=== PATIENT | female | born 1935 | race Caucasian/White ===

== ENCOUNTER 2018-11-29 19:18 | Emergency (ER) | payer MEDICARE ==
[2018-11-29 19:59] LABS: HEMATOCRIT 37.2 % (36.0-47.0); HEMOGLOBIN 12.3 g/dL (12.0-15.5); MEAN CORPUSCULAR HEMOGLOBIN 28.6 pg (27.0-33.4); MEAN CORPUSCULAR HGB CONC 33.1 g/dL (32.0-36.0); MEAN CORPUSCULAR VOLUME 86 fl (80-97); PLATELET COUNT 302 10^3/uL (150-450); RED CELL DISTRIBUTION WIDTH 14.5 % (11.5-14.0); WHITE BLOOD COUNT 11.8 10^3/uL (4.0-10.5)
[2018-11-29 20:16] LABS: ALANINE AMINOTRANSFERASE 101 U/L (9-52); ALBUMIN 3.7 g/dL (3.5-5.0); ALKALINE PHOSPHATASE 167 U/L (38-126); ANION GAP 9 (5-19); ASPARTATE AMINO TRANSFERASE 281 U/L (14-36); BILIRUBIN,DIRECT 0.9 mg/dL (0.0-0.4); BILIRUBIN,TOTAL 1.4 mg/dL (0.2-1.3); BLOOD UREA NITROGEN 14 mg/dL (7-20); CALCIUM 10.2 mg/dL (8.4-10.2); CARBON DIOXIDE 27 mmol/L (22-30); CHLORIDE 103 mmol/L (98-107); GLUCOSE 134 mg/dL (75-110); POTASSIUM 3.8 mmol/L (3.6-5.0); SODIUM 138.6 mmol/L (137-145); TOTAL PROTEIN 6.7 g/dL (6.3-8.2)
[2018-11-29 20:24] LABS: ABSOLUTE LYMPHOCYTES# (MANUAL) 0.2 10^3/uL (0.5-4.7); ABSOLUTE MONOCYTES # (MANUAL) 0.7 10^3/uL (0.1-1.4); ABSOLUTE NEUTROPHILS# (MANUAL) 10.9 10^3/uL (1.7-8.2); BASOPHILS % (MANUAL) 0 % (0-2); EOSINOPHILS % (MANUAL) 0 % (0-6); LYMPHOCYTES % (MANUAL) 2 % (13-45); MONOCYTES % (MANUAL) 6 % (3-13); PLATELET COMMENT ADEQUATE; RBC MORPHOLOGY COMMENT NORMO-CYTIC/CHROMIC; SEGMENTED NEUTROPHILS % (MAN) 92 % (42-78); TOTAL CELLS COUNTED 100
[2018-11-29 21:07] LABS: AMORPHOUS SEDIMENT,URINE TRACE /HPF; APPEARANCE,URINE CLOUDY; BILIRUBIN,URINE NEGATIVE (NEGATIVE); COLOR,URINE YELLOW; GLUCOSE, URINE NEGATIVE (NEGATIVE); KETONES,URINE 20 mg/dL (NEGATIVE); LEUKOCYTE ESTERASE,URINE TRACE (NEGATIVE); NITRITE,URINE NEGATIVE (NEGATIVE); PROTEIN,URINE 30 mg/dL (NEGATIVE); URINE SPECIFIC GRAVITY 1.014; UROBILINOGEN,URINE NEGATIVE mg/dL (<2.0)
[2018-11-29] MEDS ORDERED: RINGERS SOLUTION,LACTATED 800 ML IV ONE (21:51)
--- NOTE | 2018-11-29 21:52 | ER Document Report ---
ED General - General Chief Complaint: Abdominal Pain Stated Complaint: STOMACH PAIN Time Seen by Provider: 11/29/18 19:29 Cannot obtain history due to: Dementia Notes: Patient is an 83-year-old female with a past medical history of advanced dementia, cachexia, history of ostomy placement after perforated diverticulitis who presents with 2 days of nausea. Family reports that the patient normally will at least tolerate boost or ice cream but has not been willing to even eat cheese over the last several days due to persistent vomiting. He also reports that she continues to complain of upper abdominal discomfort. No history of similar symptoms in the past. Nothing seems to improve or worsen the patient's symptoms. The patient has not seen her primary care physician regarding today's concerns. No fever or constitutional symptoms. History is otherwise limited secondary to the patient's advanced dementia. TRAVEL OUTSIDE OF THE [place] IN LAST 30 DAYS: No - Related Data Allergies/Adverse Reactions: Penicillins Allergy (Intermediate, Verified 08/02/14 19:42) Shortness of Breath benazepril [Benazepril] Allergy (Mild, Verified 08/02/14 19:42) Cough Sertraline Allergy (Mild, Uncoded 08/02/14 19:45) Anxiety Past Medical History - General Information source: Relative - Social History Smoking Status: Never Smoker Frequency of alcohol use: None Drug Abuse: None Lives with: Family Family History: Reviewed & Not Pertinent - Past Medical History Cardiac Medical History: Reports: Hx Hypercholesterolemia Denies: Hx Atrial Fibrillation, Hx Congestive Heart Failure, Hx Coronary Artery Disease, Hx Heart Attack, Hx Hypertension, Hx Peripheral Vascular Disease, Hx Pulmonary Embolism, Hx Heart Murmur Pulmonary Medical History: Denies: Hx Asthma, Hx Bronchitis, Hx COPD, Hx Pneumonia, Hx Respiratory Failure, Hx Sleep Apnea, Hx Tuberculosis Neurological Medical History: Denies: Hx Cerebrovascular Accident, Hx Seizures Renal/ Medical History: Denies: Hx End Stage Renal Disease, Hx Kidney Stones, Hx Ovarian Cysts, Hx Peritoneal Dialysis, Hx Pelvic Inflammatory Disease Malignancy Medical History: Denies: Hx Breast Cancer, Hx Cervical Cancer, Hx Lung Cancer, Hx Ovarian Cancer GI Medical History: Denies: Hx Crohn's Disease, Hx Gastroesophageal Reflux Disease, Hx Hepatitis, Hx Hiatal Hernia, Hx Irritable Bowel, Hx Liver Failure, Hx Pancreatitis, Hx Ulcer Musculoskeletal Medical History: Reports Hx Arthritis, Denies Hx Fibromyalgia, Denies Hx Multiple Sclerosis, Denies Hx Muscular Dystrophy Psychiatric Medical History: Denies: Hx Depression Comment Only: Hx Dementia - MEMORY LOSS,PERIODS OF CONFUSION Traumatic Medical History: Denies: Hx Fractures Infectious Medical History: Denies: Hx Hepatitis Past Surgical History: Reports: Hx Hysterectomy, Hx Tonsillectomy. Denies: Hx Appendectomy, Hx Bowel Surgery, Hx Section, Hx Cholecystectomy, Hx Colostomy, Hx Coronary Artery Bypass Graft, Hx Gastric Bypass Surgery, Hx Her niorrhaphy, Hx Mastectomy, Hx Open Heart Surgery, Hx Pacemaker, Hx Tubal Ligation - Immunizations Hx Diphtheria, Pertussis, Tetanus Vaccination: Yes Hx Pneumococcal Vaccination: 06/08/14 Review of Systems - Review of Systems Notes: Constitutional: Negative for fever. HENT: Negative for sore throat. Eyes: Negative for visual changes. Cardiovascular: Negative for chest pain. Respiratory: Negative for shortness of breath. Gastrointestinal: Positive for abdominal pain and vomiting Genitourinary: Negative for dysuria. Musculoskeletal: Negative for back pain. Skin: Negative for rash. Neurological: Negative for headaches, weakness or numbness. 10 point ROS negative except as marked above and in HPI. Physical Exam - Vital signs Vitals: Temp Pulse Resp BP Pulse Ox 97.0 F 62 12 144/55 H 100 11/29/18 19:31 11/29/18 19:31 11/29/18 19:31 11/29/18 19:31 11/29/18 19:31 Interpretation: Normal Notes: PHYSICAL EXAMINATION: GENERAL: Frail, cachectic female in no acute distress HEAD: Atraumatic, normocephalic. EYES: Pupils equal round and reactive to light, extraocular movements intact, sclera anicteric, conjunctiva are normal. ENT: nares patent, oropharynx clear without exudates. Moderately dry mucous membranes. NECK: Normal range of motion, supple without lymphadenopathy LUNGS: Breath sounds clear to auscultation bilaterally and equal. No wheezes rales or rhonchi. HEART: Regular rate and rhythm without murmurs ABDOMEN: Soft, focal tenderness the right upper quadrant and epigastrium but no other localized areas of tenderness, normoactive bowel sounds. No guarding, no rebound. No masses appreciated. EXTREMITIES: Normal range of motion, no pitting or edema. No cyanosis. NEUROLOGICAL: No focal neurological deficits. Moves all extremities spontaneously and on command. PSYCH: Alert, oriented only to person SKIN: Warm, Dry, normal turgor, no rashes or lesions noted. Course - Re-evaluation Re-evalutation: 11/29/18 21:52 Patient presents with a clinical history, labs and exam findings most consistent with acute cholecystitis. Right upper quadrant abdominal pain on exam, nausea and vomiting with any in, deranged LFTs and moderate leukocytosis. Right upper quadrant ultrasound is pending. 11/29/18 23:47 Right upper quadrant ultrasound does show gallstones without any evidence of acute cholecystitis although there is a positive [place]'s sign. Common bile duct is not visualized. However given the presence of gallstones with LFT derangements this is most consistent with choledocholithiasis. I have contacted [facility] and asked that patient be transferred for ERCP. 11/30/18 00:01 Patient has been accepted at [facility] for ERCP. Excepting physician is Dr. Mayorga. - Vital Signs Vital signs: Temp Pulse Resp BP Pulse Ox 97.0 F 62 12 144/55 H 100 11/29/18 23:55 11/29/18 19:31 11/29/18 23:55 11/29/18 19:31 11/29/18 23:55 - Laboratory Result Diagrams: 11/29/18 19:45 11/29/18 19:45 Laboratory results interpreted by me: 11/29/18 11/29/18 11/29/18 19:45 19:45 20:41 WBC 11.8 H RDW 14.5 H Seg Neuts % (Manual) 92 H Lymphocytes % (Manual) 2 L Abs Neuts (Manual) 10.9 H Abs Lymphs (Manual) 0.2 L Glucose 134 H Total Bilirubin 1.4 H Direct Bilirubin 0.9 H AST 281 H ALT 101 H Alkaline Phosphatase 167 H Ammonia Urine Protein 30 H Urine Ketones 20 H Ur Leukocyte Esterase TRACE H Urine Ascorbic Acid 20 H 11/29/18 21:20 WBC RDW Seg Neuts % (Manual) Lymphocytes % (Manual) Abs Neuts (Manual) Abs Lymphs (Manual) Glucose Total Bilirubin Direct Bilirubin AST ALT Alkaline Phosphatase Ammonia < 8.7 L Urine Protein Urine Ketones Ur Leukocyte Esterase Urine Ascorbic Acid - Diagnostic Test Radiology reviewed: Reports reviewed Discharge - Discharge Clinical Impression: Choledocholithiasis, Upper abdominal pain Nausea and vomiting Qualifiers: Vomiting type: unspecified Vomiting Intractability: non-intractable Qualified Code(s): R11.2 - Nausea with vomiting, unspecified Condition: Fair Disposition: [facility] Referrals: KRISTAN ARGUETA MD [Primary Care Provider] - Follow up as needed
[2018-11-29 22:14] LABS: LIPASE 283.8 U/L (23-300)
--- NOTE | 2018-11-29 23:38 | RADIOLOGY REPORT (SQ) ---
US ABDOMEN LIMITED HISTORY: Right upper quadrant pain. COMPARISON: None. TECHNIQUE: Grayscale and color Doppler imaging of the right upper quadrant was performed. FINDINGS: The liver measures 14.4 cm. The liver has normal echotexture without focal lesion identified. The main portal vein has normal hepatopedal flow. Shadowing gallstones are present. No pericholecystic fluid or gallbladder wall thickening. There is reportedly a positive [place]'s sign. The common bile duct is not visualized. The pancreas is poorly visualized due to overlying bowel gas. The right kidney measures 8.8 cm in length, without hydronephrosis. The visualized portions of the IVC and aorta are patent. IMPRESSION: Cholelithiasis without evidence of acute cholecystitis.
[2018-11-29] MEDS ORDERED: CEFTRIAXONE INJ 1000 MG VIAL IV ONE (23:59)
[2018-11-30] MEDS ORDERED: METRONIDAZOLE 500 MG/NS RTU 500 MG/100 ML RTUPB IV ONE (00:10)
[2018-11-30] MEDS ORDERED: RINGERS SOLUTION,LACTATED 1,000 ML IV ONE (02:46)
[2018-11-30] MEDS ORDERED: MORPHINE SULFATE 10 MG/ML INJ IV PRN (03:34)
[2018-11-30 04:50] VITALS: BP 132/67
== END 2018-11-30 04:10 | disposition short-term general hospital (02) ==
LOC: ER 19:18
DX: K80.50 Calculus of bile duct without cholangitis or cholecystitis without obstruction (principal); R10.10 Upper abdominal pain, unspecified; R11.2 Nausea with vomiting, unspecified; R10.9 Unspecified abdominal pain; F03.90 Unspecified dementia, unspecified severity, without behavioral disturbance, psychotic disturbance, mood disturbance, and anxiety; R64 Cachexia; Z93.1 Gastrostomy status
CPT/HCPCS: 99284; 96361; 96365; 96366; 96368; 36415; 87040; 87086; 82140; 83690; 85025; 87077; 87088; 80053; 81001; 84484; 87186; 76705; J2270; J0696; J7120 ×2